=== PATIENT | female | born 1965 | race Caucasian/White ===

== ENCOUNTER 2018-11-14 11:40 | Outpatient (CLI) | payer OTHER | END 2018-11-14 11:41 | disposition home or self-care (01) | LOC: C.MAMMO 11:40 | DX: Z12.31 Encounter for screening mammogram for malignant neoplasm of breast (principal); M81.0 Age-related osteoporosis without current pathological fracture; Z68.31 Body mass index [BMI] 31.0-31.9, adult; Z01.419 Encounter for gynecological examination (general) (routine) without abnormal findings ==